=== PATIENT | male | born 1960 ===

== ENCOUNTER 2021-03-28 10:26 | Outpatient (CLI) | payer OTHER | END 2021-03-28 10:28 | disposition home or self-care (01) | LOC: RAD 10:26 | PROVIDERS: ATTEND Internal Medicine Cardiovascular Disease | DX: I10 Essential (primary) hypertension (principal) ==

== ENCOUNTER 2024-10-27 11:28 | Outpatient (CLI) | payer OTHER | END 2024-10-27 11:36 | disposition home or self-care (01) | LOC: RAD 11:28 | DX: M25.551 Pain in right hip (principal) ==